=== PATIENT | female | born 1970 | race Caucasian/White ===

== ENCOUNTER 2020-11-08 06:20 | Day surgery (SDC) | payer OTHER, SELFPAY ==
[~2020-11-08] VITALS: Ht 167.6 cm; Wt 72.6 kg
[2020-11-08] MEDS ORDERED: fentaNYL citrate 0.05 MG/ML VIAL ONE (08:19)
[2020-11-08] MEDS ORDERED: LIDOCAINE 2% 100 MG/5 ML UJET TP ONE (08:19)
[2020-11-08] MEDS ORDERED: fentaNYL citrate 0.05 MG/ML VIAL IVP ONE (10:15)
== END 2020-11-08 09:30 | disposition home or self-care (01) ==
LOC: MMU 06:20 → MDS 06:20
PROVIDERS: ATTEND Internal Medicine Gastroenterology
DX: Z12.11 Encounter for screening for malignant neoplasm of colon (principal); D12.3 Benign neoplasm of transverse colon; K57.32 Diverticulitis of large intestine without perforation or abscess without bleeding; K64.4 Residual hemorrhoidal skin tags; I10 Essential (primary) hypertension; K57.30 Diverticulosis of large intestine without perforation or abscess without bleeding; Z98.84 Bariatric surgery status; Z90.710 Acquired absence of both cervix and uterus; Z79.899 Other long term (current) drug therapy
CPT/HCPCS: 45380; J3010; U0003